=== PATIENT | male | born 1965 | race Caucasian/White ===

== ENCOUNTER 2018-06-26 14:10 | Emergency (ER) | payer OTHER ==
--- NOTE | 2018-06-26 15:15 | EDPHY ---
General - History Smoking Status: Never smoked Time Seen by Provider: 06/26/18 15:01 Narrative: CHIEF COMPLAINT: Finger laceration HISTORY OF PRESENT ILLNESS: Patient presents by private vehicle with complaints of finger laceration. He was cleaning a vase this afternoon when it accidentally broke, causing a laceration to the left ring finger. He notes moderate bleeding but minimal pain. No numbness. No tingling. No weakness. Difficulty been or straightening the finger. He 1st presented to his primary care physician. He was evaluated there and sent to our facility for higher level of care and for concern for possible deep tissue injury. He reports that his tetanus is up-to- date less than 10 years. He is not taking anticoagulants. He has no injury elsewhere. He is declining any x-rays. No other associated complaints or modifying factors. Right-hand dominant. TIME OF INJURY: Less than 2 hr ago TETANUS STATUS: Less than 10 years MEDICAL/SURGICAL/SOCIAL HISTORY: Dyslipidemia, coronary artery disease status post stent. Nonsmoker. REVIEW OF SYSTEMS: Ten systems reviewed and are negative unless otherwise noted in the HPI EXAMINATION General Appearance: Alert, no distress Head: normocephalic, atraumatic Cardiovascular: Symmetric radial pulses 2+. Brisk cap refill in the fingers left hand. Neurological: A&O, light and 2 point sensory symmetric, smoking pipe coater and interossei strength symmetric Skin: Warm and dry, no rash. There is a v-shaped, 2.5 cm laceration on the ulnar side left ring the proximal phalanx. No foreign body. No pulsatile bleeding. No exposure of the interossei or tendon apparatus Extremities: Minimal tenderness of the left ring finger over the laceration. Full extension of the fingers. Full flexion including superficialis and profundus. Full range of motion of the interossei is symmetric to the right upper extremity. Supplemental exam: After irrigation of the fingers re-evaluation discovers to additional lacerations. The 1st is on the distal phalanx of the left ring finger, ulnar side. The 2nd is on the dorsum of the left pinky finger, overlying the middle phalanx. Neither of these have any significant bleeding or distraction of the wound borders. No foreign bodies. No tendon exposure. DIFFERENTIAL DIAGNOSES: Including but not limited to laceration, laceration with tendon injury, laceration foreign body, laceration with vascular injury MDM: 3:15 p.m. Laceration to the ulnar aspect of the left ring finger with no obvious injury to the underlying deep structures. He is neuro intact with full flexion including superficialis and profundus. I have administered a digital block. He is declining x-ray at this time. 4:30 p.m. Patient re-evaluated after digital block in irrigation. I was able to explore the wound with excellent field of view with sterile glove. I do not appreciate any injury to the interosseous muscle, extensor tendon, or flexor tendons. There is no foreign body. No vascular injury. There were other lacerations that have been obscured by dried blood that have been evaluated. Only 1 of these will require repair, which I will do with Dermabond. 5:00 p.m. Laceration of the left ring finger has been repaired with sutures. Laceration of the left little finger repaired with Dermabond. We discussed wound care. We discussed dressing with tube gauze. We discussed follow up here in 7 days for suture removal and sooner for any signs of infection as discussed. We discussed light weight-bearing activity. I have answered all his questions and he is discharged home stable condition, neuro intact. PROCEDURE: Laceration repair, 1. Consent: Verbal Location: Left ring finger, medial side of proximal phalanx Length of repair: 2.5 cm, v-shaped Complexity: Complex Layer involvement: Single Anesthesia: Digital block Irrigation: Extensive Debridement: None Procedure description: Following good anesthesia, the wound was copiously irrigated. Wound bed was explored with a sterile glove, and there is no foreign body noted. No extensor tendon injury. No flexor tendon injury. Wound borders were approximated well with good hemostasis. Tolerated well without complication. Suture/Staple material: 5-0 Prolene, 7 simple interrupted sutures Wound care: Routine as discussed Suture/Staple removal: 7-10 Days PROCEDURE: Laceration repair, 2. Consent: Verbal Location: Dorsum of left pinky finger, middle phalanx Length of repair: 1 cm Complexity: Simple Layer involvement: Single Anesthesia: None Irrigation: Extensive Debridement: None Procedure description: Following good anesthesia, the wound was copiously irrigated. Wound bed was explored with a sterile glove, and there is no foreign body noted. Wound borders were approximated well with good hemostasis. Tolerated well without complication. Suture/Staple material: Dermabond skin adhesive Wound care: Routine as discussed Suture/Staple removal: None PROCEDURE: Digital Block Indication: Finger laceration Consent: Verbal Location: Left ring finger Anesthesia: Lidocaine 1% plain, 0.25% Marcaine plain, 5mL Description: Base of the finger was prepped. The above was infused without difficulty. Tolerated well. Good anesthesia. Complications: None SUPERVISION: This patient was independently evaluated without direct involvement of or examination by the attending physician. ED Precautions: Worsening pain. Erythema, edema, cyanosis, pallor, paresthesia or anesthesia. (Ambrosio Haywood) Medical Decision Making: I did not see this patient while he was in the emergency department. However his care was discussed with the PA while the patient was in the department. I agree with treatment plan and management (Ranulfo Rico) - Objective Vital Signs: Initial Vital Signs Temperature (C) 36.8 C 06/26/18 14:16 Heart Rate 85 06/26/18 14:16 Respiratory Rate 16 06/26/18 14:16 Blood Pressure 155/84 H 06/26/18 14:16 O2 Sat (%) 98 06/26/18 14:16 O2 Delivery Mode Room Air Allergies/Adverse Reactions: No Known Allergies Allergy (Verified 06/26/18 14:15) Home Medications: Medication Instructions Recorded Aspirin EC 06/26/18 Lipitor 06/26/18 Medications Given: Discontinued Medications Diphtheria/Tetanus/Acell Pertussis (Boostrix) 0.5 ml IM .ONCE ONE Stop: 06/26/18 18:01 Last Admin: 06/26/18 18:07 Dose: 0.5 ml Departure - Departure Disposition: Home, Routine, Self-Care Clinical Impression: Laceration of left ring finger Qualifiers: Encounter type: initial encounter Damage to nail status: without damage Foreign body presence: without foreign body Qualified Code(s): S61.215A - Laceration without foreign body of left ring finger without damage to nail, initial encounter Laceration of left little finger Qualifiers: Encounter type: initial encounter Damage to nail status: without damage Foreign body presence: without foreign body Qualified Code(s): S61.217A - Laceration without foreign body of left little finger without damage to nail, initial encounter Condition: Good Instructions: Care For Your Stitches (ED), Finger Laceration (ED), Skin Adhesive Care (ED) Additional Instructions: 1. Thin layer of bacitracin once daily for the next 2 days over the ring finger laceration. Do not apply this to the little finger laceration. 2. Keep the wound covered while showering for the next 3 days 3. Daily wound care as discussed 4. Return here for suture removal in 7-10 days 5. Return here for signs of infection as discussed including warmth, redness, fever, drainage from the site 6. return here for increasing pain surrounding the laceration 7. Do not submerge the wound in any water, hot tub, swimming pool until sutures removed Referrals: Pako Amaro MD [Primary Care Provider] - As per Instructions Physician,Emergency DeptMD [Medical Doctor] - As per Instructions (7-10 days for suture removal)
[2018-06-26] MEDS ORDERED: SKIN ADHESIVE (DERMABOND) 1 EACH TP ONE (16:37)
[2018-06-26] MEDS ORDERED: TDAP ADULT 0.5 ML INJ (BOOSTRIX) IM ONE ×2 (17:45→18:00)
[2018-06-26 17:48] VITALS: BP 132/72
== END 2018-06-26 17:45 | disposition home or self-care (01) ==
LOC: EEVIPCON 14:10
PROC: 0HQGXZZ Repair Left Hand Skin, External Approach (ICD-10-PCS; principal; 2018-06-26)
DX: S61.215A Laceration without foreign body of left ring finger without damage to nail, initial encounter (principal); S61.217A Laceration without foreign body of left little finger without damage to nail, initial encounter; W25.XXXA Contact with sharp glass, initial encounter; Y93.E9 Activity, other interior property and clothing maintenance; Y99.8 Other external cause status; Z23 Encounter for immunization